=== PATIENT | male | born 1940 | race Caucasian/White ===

== ENCOUNTER → 2021-07-21 | Outpatient (CLI) | payer OTHER, BC | END | disposition home or self-care (01) | LOC: MRI 13:53 | PROVIDERS: ATTEND Physician Assistant | DX: M47.812 Spondylosis without myelopathy or radiculopathy, cervical region (principal); M48.02 Spinal stenosis, cervical region; M50.23 Other cervical disc displacement, cervicothoracic region; M54.12 Radiculopathy, cervical region ==

== ENCOUNTER → 2021-09-07 | Outpatient (CLI) | payer OTHER, BC | LOC: RAD 11:53 | PROVIDERS: ATTEND Specialist | DX: M43.12 Spondylolisthesis, cervical region (principal); M50.31 Other cervical disc degeneration, high cervical region; M53.2X2 Spinal instabilities, cervical region ==